=== PATIENT | female | born 1935 | race Caucasian/White ===

== ENCOUNTER → 2020-03-01 | Outpatient (CLI) | payer MEDICARE, BC ==
--- NOTE | 2020-03-01 12:11 | CARD ---
MR#: [id number] Date of Study: 03/01/2020 Ordering Physician: LEI MARIA, Referring Physician: LEI MARIA, Tech: Senia Love [facility] APPROVED REPORT EXAM: Two-dimensional and M-mode echocardiogram with Doppler and color Doppler. Other Information Quality : Fair INDICATION Chest Pain 2D DIMENSIONS RVDd2.7 (2.9-3.5cm)Left Atrium(2D)3.0 (1.6-4.0cm) IVSd1.3 (0.7-1.1cm)Aortic Root(2D)2.7 (2.0-3.7cm) LVDd3.1 (3.9-5.9cm)LVOT Diameter2.0 (1.8-2.4cm) PWd1.0 (0.7-1.1cm)LVDs2.0 (2.5-4.0cm) FS (%) 25.0 %SV25.6 ml Aortic Valve AoV Peak Grant.120.7cm/sAoV VTI19.9cm AO Peak GR.5.8mmHgLVOT Peak Grant.89.1cm/s LVOT VTI 16.86cmAO Mean GR.3mmHg KIERA (VMAX)2.19sm3DEL (VTI)2.75cm2 Mitral Valve MV E Eudmcefx33.5cm/sMV DECEL [id number] MV A Qrcajylv66.2cm/sE/A Ratio0.7 Tricuspid Valve TR P. Ptmobdia042vj/sRAP YYMQMVBD0jpHg TR Peak Gr.64ziBvDZEH04qbZc Pulmonary Vein S1 Tjfrodeh58.8cm/sD2 Nzebsrov45.8cm/s LEFT VENTRICLE The left ventricle is normal size. There is mild concentric left ventricular hypertrophy. Left ventri melquiades systolic function is normal. The Ejection Fraction is 50-55%. Septal motion consistent with condu ction abnormality. Transmitral Doppler flow pattern is Grade I-abnormal relaxation pattern. RIGHT VENTRICLE The right ventricle is normal size. The right ventricular systolic function is normal. ATRIA The left atrium size is normal. The right atrium size is normal. The interatrial septum is intact wit h no evidence for an atrial septal defect or patent foramen ovale as noted on 2-D or Doppler imaging. AORTIC VALVE The aortic valve is not well visualized. Doppler and Color Flow revealed mild aortic regurgitation. T here is no significant aortic valvular stenosis. MITRAL VALVE The mitral valve is calcified but opens well. There is no evidence of mitral valve prolapse. There is no mitral valve stenosis. Doppler and Color Flow revealed no mitral valve regurgitation noted. TRICUSPID VALVE The tricuspid valve is normal in structure and function. Doppler and Color Flow revealed no tricuspid valve regurgitation noted. There is no tricuspid valve stenosis. PULMONIC VALVE The pulmonic valve is not well visualized. Doppler and Color Flow revealed no pulmonic valvular regur gitation. There is no pulmonic valvular stenosis. GREAT VESSELS The aortic root is normal in size. The ascending aorta is normal in size. The IVC is normal in size a nd collapses >50% with inspiration. PERICARDIAL EFFUSION There is no evidence of significant pericardial effusion. Critical Notification Critical Value: No <Conclusion> The left ventricle is normal size. Left ventricle systolic function is normal. The Ejection Fraction is 50-55%. Septal motion consistent with conduction abnormality. There is mild concentric left ventricular hypertrophy. Doppler and Color Flow revealed mild aortic regurgitation. There is no significant aortic valvular stenosis. Doppler and Color Flow revealed no mitral valve regurgitation noted. Doppler and Color Flow revealed no tricuspid valve regurgitation noted. Signed by : Lei Maria MD Electronically Approved : 03/01/2020 12:10:52
== END | disposition home or self-care (01) ==
LOC: ECHO 09:11
PROVIDERS: ATTEND Internal Medicine Cardiovascular Disease
DX: I08.0 Rheumatic disorders of both mitral and aortic valves (principal)
CPT/HCPCS: 93306